=== PATIENT | female | born 1960 | race Caucasian/White ===

== ENCOUNTER → 2018-09-13 | Day surgery (SDC) | payer BC ==
[~2018-09-13] MED LIST: AMOXICILLIN875 MG PO; ESTRADIOL1 MG PO; ESTROVEN PO; FENTANYL CITRATE/PF 100MCG/2 ML INJ ONE; HYOSCYAMINE SULFATE 0.5 MG/ML INJ ONE; METFORMIN HCL500 MG PO; MIDAZOLAM HCL 2 MG/2 ML VIAL ONE; NEXIUM40 MG PO; PROPOFOL IV EMULSION 10 MG/ML 50 ML VIAL ONE
--- OUTSIDE RECORDS SUMMARY | 2018-09-13 06:58 | XMS REPORT ---
Author Author [facility] Address Unknown Phone Unavailable Care Team Providers Care Business Economist Name Role Phone Unavailable Unavailable Payers Payer Name Policy Type Policy Number Effective Date Expiration Date Problems This patient has no known problems. Allergies, Adverse Reactions, Alerts Allergy Name Allergy Type Status Severity Reaction(s) Onset Date Inactive Date Treating Clinician Comments Sulfa (Sulfonamide Antibiotics) DA Active 2018-02-23 00:00:00 cefazolin DA Active 2018-02-23 00:00:00 Medications This patient has no known medications.
[2018-09-13 10:40] VITALS: BP 117/77
--- NOTE | 2018-09-13 12:46 | Operative Report ---
DATE OF PROCEDURE: September 13, 2018 REFERRING PHYSICIAN: Mynor Alicea DO PROCEDURES PERFORMED 1. Esophagogastroduodenoscopy with biopsies and esophageal dilatation. 2. Colonoscopy with polypectomy. INDICATIONS FOR EGD: Dysphagia, nausea. INDICATIONS FOR COLONOSCOPY: Colorectal cancer screening. History of bright red blood per rectum. MEDICATION: Patient was done under MAC. Please see anesthesiologist's note. PROCEDURE: With the patient in the left lateral decubitus position, the flexible fiberoptic Olympus gastroscope was introduced into the esophagus under direct visualization without any difficulty. There was some patchy erythema noted in the distal esophagus. The esophagus was then dilated to a size 52-Swedish López. The scope was then advanced with ease into the stomach, traversing a medium-size hiatal hernia. Mucosa overlying the body of the stomach revealed some diffuse erythema and moderate edema, and biopsies were obtained and sent to stain for H. pylori. The patient apparently is status post Joshua-en-Y with anastomosis approximately 10 cm distal to the lower esophageal sphincter. Anastomosis was intact. The enteric loop was patent. The scope was subsequently withdrawn. Patient tolerated the procedure well. IMPRESSION 1. Mild distal esophagitis. 2. Esophagus dilated to size 52-Swedish López. 3. Medium-size hiatal hernia. 4. Status post Joshua-en-Y. Anastomosis at approximately 10 cm distal to the gastroesophageal junction. 5. Gastritis, biopsied. Biopsy sent to stain for H. pylori. PLAN: Follow up histology. Continue Nexium 40 mg 1 p.o. q.a.m. a.c. Add Carafate 1 gram p.o. a.c. t.i.d. and nightly. The patient was then turned around. After adequate lubrication of the anal canal, a flexible fiberoptic Olympus colonoscope was inserted into the rectum with ease and advanced all the way to the cecum. It was then withdrawn slowly. Mucosa overlying the cecum, ascending, and transverse appeared to be within normal limits. Some diverticular disease was noted in the distal descending and the sigmoid colon. Two minute hyperplastic-appearing polyps were hot biopsied from the sigmoid colon, and 1 minute polyp was hot biopsied from the rectum. The scope was then retroflexed into the distal rectum, and small internal hemorrhoids were noted, none of which was actively bleeding. The scope was then straightened out. It was subsequently withdrawn. Patient tolerated the procedure well. IMPRESSION 1. Diverticulosis. 2. Sigmoid colon polyps, minute, times 2, hot biopsied. 3. Rectal polyp times 1, minute, hot biopsied. 4. Internal hemorrhoids, none actively bleeding. PLAN: Follow up histology. Initiate high-fiber, low-fat diet. Initiate high-fiber supplement. Start VSL #3 one p.o. daily. Patient might benefit from a followup colonoscopy in 3 to 5 years. SPRING SERRA MD Job#: [id number] cc:MYNOR ALICEA,
== END | disposition home or self-care (01) ==
LOC: OR 06:50
PROVIDERS: ATTEND Internal Medicine Gastroenterology
DX: Z12.11 Encounter for screening for malignant neoplasm of colon (principal); Z86.010 Personal history of colon polyps; K44.9 Diaphragmatic hernia without obstruction or gangrene; K29.70 Gastritis, unspecified, without bleeding; K57.30 Diverticulosis of large intestine without perforation or abscess without bleeding; K63.5 Polyp of colon; K62.1 Rectal polyp; K64.8 Other hemorrhoids; K21.0 Gastro-esophageal reflux disease with esophagitis; K22.2 Esophageal obstruction; K92.1 Melena; R11.2 Nausea with vomiting, unspecified; R13.10 Dysphagia, unspecified; Z88.2 Allergy status to sulfonamides; Z88.8 Allergy status to other drugs, medicaments and biological substances; E11.9 Type 2 diabetes mellitus without complications; F41.9 Anxiety disorder, unspecified; Z98.84 Bariatric surgery status; R10.30 Lower abdominal pain, unspecified
CPT/HCPCS: 43239; 43249; 45384; 93005; J1980; J2250; 43450; 45378; 45385

== ENCOUNTER → 2022-08-19 | Day surgery (SDC) | payer BC ==
[~2022-08-19] MED LIST changes: -FENTANYL CITRATE/PF 100MCG/2 ML INJ ONE; -HYOSCYAMINE SULFATE 0.5 MG/ML INJ ONE; +IRBESARTAN150 MG PO; -MIDAZOLAM HCL 2 MG/2 ML VIAL ONE; +OMEPRAZOLE40 MG PO; -PROPOFOL IV EMULSION 10 MG/ML 50 ML VIAL ONE
[2022-08-19 10:25] VITALS: BP 130/79
== END | disposition home or self-care (01) ==
LOC: ENDO 07:38
PROVIDERS: ATTEND Internal Medicine Gastroenterology
DX: K20.90 Esophagitis, unspecified without bleeding (principal); K44.9 Diaphragmatic hernia without obstruction or gangrene; Z98.84 Bariatric surgery status; K21.9 Gastro-esophageal reflux disease without esophagitis; K59.09 Other constipation; Z86.010 Personal history of colon polyps; Z87.19 Personal history of other diseases of the digestive system; Z71.3 Dietary counseling and surveillance; I10 Essential (primary) hypertension; N20.0 Calculus of kidney; Z88.1 Allergy status to other antibiotic agents; Z88.2 Allergy status to sulfonamides; Z01.810 Encounter for preprocedural cardiovascular examination; Z79.899 Other long term (current) drug therapy; Z68.31 Body mass index [BMI] 31.0-31.9, adult; Z86.16 Personal history of COVID-19
CPT/HCPCS: 43239; 43450; 93005; C9113